=== PATIENT | female | born 1985 | race Caucasian/White ===

== ENCOUNTER 2017-12-15 17:45 | Emergency (ER) | payer OTHER ==
[~2017-12-15] VITALS: Ht 160 cm; Wt 61.2 kg
== END 2017-12-15 21:00 | disposition home or self-care (01) ==
LOC: ER 17:45
DX: S93.491A Sprain of other ligament of right ankle, initial encounter (principal); X50.9XXA Other and unspecified overexertion or strenuous movements or postures, initial encounter; Y93.01 Activity, walking, marching and hiking; Y92.59 Other trade areas as the place of occurrence of the external cause; Y99.8 Other external cause status